=== PATIENT | female | born 1955 | race Caucasian/White ===

== ENCOUNTER → 2016-09-22 | Outpatient (CLI) | payer BC ==
[~2016-09-22] MED LIST: ADVIL200 MG PO; ALBUTEROL0.09 MG/A3 IH; ALBUTEROL0.83 MG/ML IH; ALDACTONE 25MG25 M1 PO; AMBIEN CR6.25 MG PO; AMBIEN5 MG PO; AMLODIPINE5 MG PO; ASPIRIN 81M81 MG/TA2 PO; BIAXIN 500MG T500 MG PO; BIAXIN PO; BIAXIN500 MG PO; CELEBREX200 MG PO; CLOTRIMAZOLE TR10 MG MM; COD PO; CYCLOBENZAPRINE10 MG PO; DIFLUCAN 100MG100 MG PO; DIFLUCAN100 MG PO; DOXYCYCLINE 10100 MG PO; GENTAMICIN180 MG/501 NS; HCTZ 25MG TAB25 MG PO; IMMUNE GLOBULIN; LEVAQUIN 250MG250 MG PO; LEVAQUIN 5500 MG/TA1 PO; LEVAQUIN 5500 MG/TAB PO; LEVAQUIN500 MG PO; LIDOCAINE INH; LIPITOR 10MG10 MG PO; LORTAB PO; NABUMETONE500 MG PO; NO HOME MEDICATIONS; NORCO 325 MG-51 TAB PO; NORVASC 5MG5 MG/TAB PO; PHENERGAN W/CO120 M1 PO; PHENERGAN W/CO120 ML PO; PREVACID 15MG15 M1; PREVACID 30MG30 M1 PO; PREVAGEN; PROMETHAZINE PO; PYRIDIUM200 M1 PO; RELAFEN500 MG PO; ROCEPHIN V500 MG/VIA IJ; SEPTRA SUS200/5-40/5 PO; SINGULAIR10 MG PO; SULFAMETH/TRIME1 TA2 PO; SYMBICORT1 AE1 IH; ULTRAM 50MG TAB50 MG PO; VALACYCLOVIR HYD1 GM PO; VENTOLIN0.09 MG IH; ZANTAC 300300 MG PO; ZOLPIDEM5 MG PO; [UNRECOGNIZED DRUG - OTHER] IV; [UNRECOGNIZED DRUG - OTHER] IV; [UNRECOGNIZED DRUG - OTHER] PO; [UNRECOGNIZED DRUG - OTHER] PO
== END ==
LOC: MC.RAD 13:51
DX: D24.1 Benign neoplasm of right breast (principal)

== ENCOUNTER → 2018-01-10 | Outpatient (CLI) | payer BC | LOC: MC.RAD 13:57 | DX: Z12.31 Encounter for screening mammogram for malignant neoplasm of breast (principal) ==

== ENCOUNTER → 2018-07-12 | Outpatient (CLI) | payer BC | LOC: COL.VAS 08:14 | DX: I07.1 Rheumatic tricuspid insufficiency (principal); R05 Cough ==

== ENCOUNTER → 2019-01-15 | Outpatient (CLI) | payer BC | LOC: MC.RAD 07:45 | DX: Z12.31 Encounter for screening mammogram for malignant neoplasm of breast (principal) ==

== ENCOUNTER → 2019-06-26 | Outpatient (CLI) | payer BC | LOC: ZCOL.LAB 14:49 | DX: Z01.812 Encounter for preprocedural laboratory examination (principal); Z86.14 Personal history of Methicillin resistant Staphylococcus aureus infection ==

== ENCOUNTER → 2021-05-13 | Outpatient (CLI) | payer MEDICARE, OTHER | LOC: MC.RAD 03-26 13:00 | DX: Z12.31 Encounter for screening mammogram for malignant neoplasm of breast (principal) ==

== ENCOUNTER → 2021-10-26 | Outpatient (CLI) | payer MEDICARE, OTHER | LOC: COL.RAD 10-18 13:00 | DX: Z01.812 Encounter for preprocedural laboratory examination (principal); M89.9 Disorder of bone, unspecified ==

== ENCOUNTER 2021-11-08 06:50 | Day surgery (SDC) | payer MEDICARE, OTHER ==
[~2021-11-08] VITALS: Ht 160 cm; Wt 64.4 kg
[2021-11-08] MEDS ORDERED: ZETIA 10MG TAB10 MG PO (07:07)
[2021-11-08] MEDS ORDERED: TRELEGY ELLIPT1 EACH IH (07:07)
[2021-11-08] MEDS ORDERED: IBU800 M1 PO (07:07)
[2021-11-08] MEDS ORDERED: ALDACTONE50 MG PO (07:08)
[2021-11-08] MEDS ORDERED: FLONASEALLERGY NS (07:09)
[2021-11-08] MEDS ORDERED: NORVASC 10MG10 MG PO (07:11)
[2021-11-08] MEDS ORDERED: CRESTOR 10MG10 MG PO (07:12)
[2021-11-08 07:46] LABS: BASO # 0.1 K/mm3 (0.0-0.2); BASO % 0.7 % (0.0-2.0); EOS # 0.3 K/mm3 (0.0-0.7); EOS % 4.3 % (0.0-4.0); GRAN # 3.7 K/mm3 (1.4-6.5); GRAN % 48.8 % (42.2-75.2); HEMOGLOBIN 12.2 g/dl (12.5-16.0); LYMPH # 2.9 K/mm3 (1.2-3.4); LYMPH % 38.2 % (20.0-51.0); MEAN CELL VOLUME 89 fl (80.0-100.0); MEAN CORPUSCULAR HEMOGLOBIN 31 pg (27-31); MEAN CORPUSCULAR HGB CONC 35 g/dl (33.0-37.0); MEAN PLATELET VOLUME 9.1 fl (7.4-10.4); MONO # 0.6 K/mm3 (0.1-0.6); MONO % 7.7 % (1.7-9.3); PLATELET COUNT 326 K/mm3 (130-400); RED BLOOD COUNT 3.96 M/mm3 (4.10-5.30); REDCELL DISTRIBUTION WIDTH-CV 13.2 % (11.5-14.5)
[2021-11-08 07:54] LABS: HEMATOCRIT 35.3 % (37.0-47.0)
[2021-11-08 09:30] VITALS: BP 110/73; PULSE 90; TEMP 96.9
--- NOTE | 2021-11-08 09:30 | NUR ---
Pt arrived from PACU after moderate sedation, escorted by Radha ESCOBAR. Pt is alert and oriented, denies pain and nausea, but states some dizziness. Vitals obtained and are WNL. L hip bandage is dry and intact; no drainage or swelling noted. Pt requested 7up and a warm muffin. is present. Side rails x2. Call lewis is within reach on side table. Will continue to monitor per intervals.
[2021-11-08 09:45] VITALS: BP 116/83; PULSE 86
--- NOTE | 2021-11-08 09:45 | NUR ---
Pt has finished her muffin and continues to drink 7up. Denies nause. Pt states dizziness has subsided. Pt expressed desire to be discharged. Call lewis remains within reach. Vitals obtained.
[2021-11-08 10:00] VITALS: BP 110/67; PULSE 92
--- NOTE | 2021-11-08 10:00 | NUR ---
Vitals obtained. IV discontinued. Catheter tip intact and pressure dressing applied. No redness or swelling noted. DC instructions and educational material reviewed with the pt and her ; both verbalized understanding and the pt signed the related paperwork. The pt denied needing assistance changing her personal clothes. Pt sat at bedside and denied dizziness. Call lewis is within reach.
--- NOTE | 2021-11-08 10:20 | NUR ---
Pt dismissed from [facility] [place] via wheelchair by SHAWN Ramos. Pt has her personal belongings and DC packet; and was transferred into the care of her , who is present to drive.
[2021-11-08 10:53] VITALS: BP 129/80; PULSE 100; TEMP 98.2
[2021-11-08 11:15] VITALS: BP 110/73; PULSE 88
== END 2021-11-08 10:20 | disposition home or self-care (01) ==
LOC: SDCO 06:50
PROVIDERS: Pathology Anatomic Pathology & Clinical Pathology
DX: C90.00 Multiple myeloma not having achieved remission (principal); D47.2 Monoclonal gammopathy; D80.1 Nonfamilial hypogammaglobulinemia; K21.9 Gastro-esophageal reflux disease without esophagitis; Z79.899 Other long term (current) drug therapy
CPT/HCPCS: J2704; J7120

== ENCOUNTER 2022-02-04 07:26 | Day surgery (SDC) | payer MEDICARE, OTHER ==
[~2022-02-04] VITALS: Ht 160 cm; Wt 66.8 kg
[~2022-02-04 07:26] MED LIST changes: +ALDACTONE50 MG PO; +CRESTOR 10MG10 MG PO; +FLONASEALLERGY NS; +IBU800 M1 PO; +NORVASC 10MG10 MG PO; +TRELEGY ELLIPT1 EACH IH; +ZETIA 10MG TAB10 MG PO
[2022-02-04 08:10] VITALS: BP 131/85; PULSE 107; TEMP 98.4
[2022-02-04] MEDS ORDERED: ZOVIRAX400 MG PO (08:17)
[2022-02-04] MEDS ORDERED: ASPIRIN 81M81 MG/TA2 PO (08:18)
[2022-02-04] MEDS ORDERED: PROAIR HFA0.09 MG/AC IH (08:18)
[2022-02-04] MEDS ORDERED: ZITHROMAX 250M250 MG PO (08:19)
[2022-02-04] MEDS ORDERED: PULMICORT0.5 MG/2 M IH (08:20)
[2022-02-04] MEDS ORDERED: DECADRON 4MG TAB4 MG PO (08:21)
[2022-02-04] MEDS ORDERED: NEURONTIN100 MG/CAP PO (08:22)
[2022-02-04] MEDS ORDERED: IMMUNE GLOBULIN 100 MG/ML PO (08:24)
[2022-02-04] MEDS ORDERED: TORADOL 10MG TA10 MG PO (08:25)
[2022-02-04] MEDS ORDERED: REVLIMID25 MG PO (08:26)
[2022-02-04] MEDS ORDERED: ZOFRAN 4MG T4 MG/TAB PO (08:26)
[2022-02-04] MEDS ORDERED: PREVACID24HROTC PO (08:26)
[2022-02-04] MEDS ORDERED: CRESTOR 10MG10 MG PO (08:27)
[2022-02-04] MEDS ORDERED: RESTASIS MULTI5.5 ML OP (08:27)
[2022-02-04 09:35] VITALS: BP 112/60; TEMP 98.4
--- NOTE | 2022-02-04 09:35 | NUR ---
PATIENT ARRIVES BACK TO ROOM 2 VIA CART. SHE IS ALERT AND ORIENTED. VITAL SIGNS WNL. AT BEDSIDE. PATIENT REQUESTS CRACKERS AND COFFEE. DOCTOR SPOKE WITH PATIENT AT BEDSIDE IN PROCEDURE ROOM. WILL CONTINUE TO MONITOR.
[2022-02-04 09:50] VITALS: BP 103/74; PULSE 100
--- NOTE | 2022-02-04 09:50 | NUR ---
PATIENT TOLERATED EATING AND DRINKING WITHOUT NAUSEA. VITAL SIGNS WNL. STILL AT BEDSIDE. WILL CONTINUE TO MONITOR.
[2022-02-04 10:05] VITALS: BP 113/68; PULSE 90
--- NOTE | 2022-02-04 10:05 | NUR ---
PATIENT IS READY FOR DISCHARGE. IS STILL AT BEDSIDE. LAST SET OF VITAL SIGNS WNL. DISCHARGE INSTRUCTIONS REVIEWED. WILL DISCHARGE PATIENT WHEN SHE IS DRESSED AND READY. IV REMOVED WELL.
[2022-02-04 20:11] VITALS: BP 110/62; PULSE 103
== END 2022-02-04 10:45 | disposition home or self-care (01) ==
LOC: SDCO 07:26
DX: C90.00 Multiple myeloma not having achieved remission (principal)
CPT/HCPCS: J2704; J7120

== ENCOUNTER → 2022-08-29 | Outpatient (CLI) | payer MEDICARE, OTHER ==
[~2022-08-29] MED LIST changes: +DECADRON 4MG TAB4 MG PO; +IMMUNE GLOBULIN 100 MG/ML PO; +NEURONTIN100 MG/CAP PO; +PREVACID24HROTC PO; +PROAIR HFA0.09 MG/AC IH; +PULMICORT0.5 MG/2 M IH; +RESTASIS MULTI5.5 ML OP; +REVLIMID25 MG PO; +TORADOL 10MG TA10 MG PO; +ZITHROMAX 250M250 MG PO; +ZOFRAN 4MG T4 MG/TAB PO; +ZOVIRAX400 MG PO
== END ==
LOC: MC.RAD 13:11
DX: Z12.31 Encounter for screening mammogram for malignant neoplasm of breast (principal)

== ENCOUNTER → 2022-10-11 | Outpatient (CLI) | payer MEDICARE, OTHER | LOC: COL.PUL 07:48 | DX: C90.00 Multiple myeloma not having achieved remission (principal) | CPT/HCPCS: J2545 ==

== ENCOUNTER → 2024-03-25 | Outpatient (CLI) | payer MEDICARE, OTHER | LOC: MC.RAD 05:57 | DX: Z12.31 Encounter for screening mammogram for malignant neoplasm of breast (principal) ==